=== PATIENT | female | born 1960 | race Caucasian/White ===

== ENCOUNTER 2017-05-22 05:27 | Observation (INO) | payer OTHER ==
[2017-05-15 10:20] VITALS: BMI 33.0
--- NOTE | 2017-05-15 10:59 | PAT Medication Instructions ---
Service Date May 15, 2017. Current Home Medication List Levothyroxine Sodium (Levothyroxine Sodium), 1 TAB PO QAM Omeprazole (Prilosec), 20 MG PO PRN Sertraline (Zoloft), 100 MG PO QAM [Hydrochlorothiazide], 1 TAB PO QAM [Meloxicam], 1 TAB PO QAM Medication Instructions For Your Scheduled Surgery - Hold the following medications the morning of surgery: [Hydrochlorothiazide], 1 TAB PO QAM [Meloxicam], 1 TAB PO QAM (otherwise okay to continue per surgeon) - Take the following medications the morning of surgery with a sip of water OTHERWISE NOTHING TO EAT OR DRINK AFTER MIDNIGHT: Levothyroxine Sodium (Levothyroxine Sodium), 1 TAB PO QAM Omeprazole (Prilosec), 20 MG PO PRN Sertraline (Zoloft), 100 MG PO QAM If you have any questions please call us at [phone] or [phone] or [phone]
--- NOTE | 2017-05-15 11:43 | DIAGNOSTIC IMAGING REPORT ---
CHEST PREADMISSION(PA/LAT) CLINICAL HISTORY: PAT preoperative evaluation COMPARISON STUDY: No previous studies for comparison. FINDINGS: The bones soft tissues and hemidiaphragms are normal. The cardiomediastinal silhouette is normal. The lungs are clear. The pulmonary vasculature is normal. IMPRESSION: Negative chest. The above report was generated using voice recognition software. It may contain grammatical, syntax or spelling errors. Electronically signed by: Gordo Escalante M.D. 05/15/2017 11:42 AM Dictated Date/Time: 05/15/2017 11:42 AM
[2017-05-15 11:56] LABS: URINE APPEARANCE TURBID (CLEAR); URINE BILIRUBIN NEG (NEG); URINE COLOR YELLOW; URINE EPITHELIAL CELL AUTO >30 /lpf (0-5); URINE NITRITE NEG (NEG); URINE PH 5.5 (4.5-7.5); URINE SPECIFIC GRAVITY 1.027 (1.000-1.030); UROBILINOGEN NEG (NEG)
[2017-05-15 11:57] LABS: BASO ABS # 0.05 K/uL (0-0.2); COMPLETE YES; EOS % 3.1 %; IG% 0.2 %; LYMPH % 33.9 %; LYMPH ABS # 1.63 K/uL (1.2-3.4); MEAN CELL VOLUME 90.9 fL (80-100); MEAN CORPUSCULAR HEMOGLOBIN 28.5 pg (25-34); MEAN CORPUSCULAR HGB CONC 31.4 g/dl (32-36); MEAN PLATELET VOLUME 12.4 fL (7.4-10.4); MONO % 12.3 %; NEUT % 49.5 %; PLATELET COUNT 161 K/uL (130-400); RED BLOOD COUNT 4.73 M/uL (4.2-5.4); WHITE BLOOD COUNT 4.81 K/uL (4.8-10.8)
[2017-05-15 12:01] LABS: MANUAL MICROSCOPIC REQUIRED? NO; REVIEW REQ? YES
[2017-05-15 12:07] LABS: PROTHROMBIN TIME (PATIENT) 10.6 SECONDS (9.0-12.0)
[2017-05-22] VITALS (16 sets, daily range): BP systolic 112–171; BP diastolic 72–101; PULSE 52–74; TEMP 36.2–36.9; O2SAT 95–99; Ht 165.1 cm; Wt 92.4 kg
[~2017-05-22] VITALS: Ht 165.1 cm; Wt 92.4 kg
[~2017-05-22 05:27] MED LIST: HYDROCHLOROTHIAZIDE PO; LEVO150T9 PO; MELOXICAM PO; PRLSR20 PO; SERT-234 PO
[2017-05-22] MEDS ORDERED: NSS 1000ML IV SCH (06:00)
[2017-05-22] MEDS ORDERED: CEFAZOLIN 2000 MG/60 ML D5W IV SCH (06:00)
[2017-05-22] MEDS ORDERED: LACTATED RINGER'S 1000ML 1,000 ML IV SCH (06:00)
[2017-05-22] MEDS ORDERED: THROMBIN FOR SOLN 20000 UNIT KIT ONE (06:50)
[2017-05-22] MEDS ORDERED: BACITRACIN 50000 UNIT VIAL ONE (06:50)
[2017-05-22] MEDS ORDERED: GELATIN SPONGE SZ 100 ONE ×2 (06:50→07:10)
[2017-05-22] MEDS ORDERED: BUPIVACAINE/EPINEPHRINE 0.5% MPF 1:200,000 10 ML VIAL ONE ×3 (06:50→07:02)
[2017-05-22] MEDS ORDERED: DEXAMETHASONE SOD INJ 4 MG/ML VIAL ONE (06:54)
[2017-05-22] MEDS ORDERED: EpHEDrine SULFATE INJ 50 MG/ML AMP ONE (06:54)
[2017-05-22] MEDS ORDERED: ONDANSETRON INJ 2 MG/ML 2 ML VIAL ONE (06:54)
[2017-05-22] MEDS ORDERED: ROCURONIUM BROMIDE 10 MG/ML 5 ML VIAL ONE (06:54)
[2017-05-22] MEDS ORDERED: MIDAZOLAM HCL 1 MG/ML 2ML VIAL ONE (06:54)
[2017-05-22] MEDS ORDERED: PROPOFOL IV EMULSION 10 MG/ML 20 ML VIAL IV ONE (06:54)
[2017-05-22] MEDS ORDERED: PHENYLEPHRINE HCL INJ 10 MG/ML VIAL ONE (06:54)
[2017-05-22] MEDS ORDERED: FENTANYL CITRATE INJ 50 MCG/1 ML 2 ML VIAL ONE (06:54)
[2017-05-22] MEDS ORDERED: LIDOCAINE HCL 2% 2 ML VIAL (20MG/ML) ONE (06:54)
[2017-05-22] MEDS ORDERED: NEOSTIGMINE METHYLSULFATE 5 MG/5 ML SYR ONE (06:54)
[2017-05-22] MEDS ORDERED: SUCCINYLCHOLINE CHLORIDE 20 MG/ML 10 ML VIAL IV ONE (06:54)
[2017-05-22] MEDS ORDERED: GLYCOPYRROLATE INJ 0.2 MG/ML VIAL ONE (06:54)
--- NOTE | 2017-05-22 07:12 | History and Physical ---
History & Physical Date May 22, 2017. Chief Complaint Neck and arm pain and trapezius pain and weakness History of Present Illness The patient is a 56 year old female with complaints of neck pain and arm pain and trapezius pain numbness and tingling to the extremities Past Medical/Surgical History Hypothyroid edema pressure and arthritis no hypertension no COPD no diabetes mellitus no carcinoma Surgical history multiple tunnel and hysterectomy Additional History Hepatic Disease: No Endocrine Disorder: Yes Kidney Disease: No Hypertension: No Heart Disease: No Bleeding Tendencies: No Infectious Diseases: No Allergies Coded Allergies: No Known Allergies (Unverified , 05/22/17) Home Medications Scheduled Levothyroxine Sodium (Levothyroxine Sodium), 1 TAB PO QAM Omeprazole (Prilosec), 20 MG PO PRN Sertraline (Zoloft), 100 MG PO QAM [Hydrochlorothiazide], 1 TAB PO QAM [Meloxicam], 1 TAB PO QAM Physical Examination Skin: warm/dry, no rash Eyes: normal inspection ENT: normal ENT inspection Head: normocephalic Neck: supple Respiratory/Chest: lungs clear Cardiovascular: regular rate, rhythm Abdomen / GI: normal bowel sounds Back: normal inspection Extremities: normal inspection Genitourinary - Female: external genitalia normal Diagnosis Spinal cord compression C5-C6 cervical spine ASA Classification: ASA Class III Plan of Treatment Anterior cervical discectomy and fusion C5 6 cervical spine. Iliac crest bone graft. Thank you
[2017-05-22] MEDS ORDERED: EpHEDrine SULFATE INJ 50 MG/ML AMP IV PRN (07:15)
[2017-05-22] MEDS ORDERED: ATROPINE SULFATE 0.1 MG/ML 5ML SYR IV PRN (07:15)
[2017-05-22] MEDS ORDERED: PHENYLEPHRINE 100MCG/ML 5ML SYR IV PRN (07:15)
[2017-05-22] MEDS ORDERED: ONDANSETRON INJ 2 MG/ML 2 ML VIAL IV PRN ×2 (07:15→09:30)
[2017-05-22] MEDS ORDERED: LORAZEPAM INJ 0.5 MG in SYRINGE 0.75 ML IV PRN (09:30)
[2017-05-22] MEDS ORDERED: HYDROmorphone INJ 0.5 MG/0.5 ML SYR IV PRN (09:30)
[2017-05-22] MEDS ORDERED: RACEPINEPHRINE 2.25% NEBU SOLN 0.5 ML VIAL INH PRN (09:30)
[2017-05-22] MEDS ORDERED: PANTOprazole SOD 40 MG TAB PO PRN (09:30)
[2017-05-22] MEDS ORDERED: ACETAMINOPHEN IV 1,000 MG in EMPTY BAG 0 ML IV PRN (09:30)
[2017-05-22] MEDS ORDERED: NALOXONE HCL 0.4 MG/1 ML VIAL/CARP IV PRN (09:30)
[2017-05-22] MEDS ORDERED: DEXAMETHASONE INJ 8 MG in SYRINGE 0 ML IV PRN (09:30)
[2017-05-22] MEDS ORDERED: MAGNESIUM HYDROXIDE SUSP 30 ML UDC PO PRN (09:30)
--- NOTE | 2017-05-22 09:30 | [facility] Operative Report ---
Operative Report Operative Date May 22, 2017. Pre-Operative Diagnosis Spinal cord compression C5-C6 Certvical spine Post-Operative Diagnosis Spinal cord compression C5-C6 Certvical spine Procedure(s) Performed C5-C6 Anterior Cervical Discectomy and Fusion with Iliac Crest Bone Graft Surgeon Dr. Werner Magnetic Prospecting Operator Surgeon(s) Kenton Escalona PA-C Estimated Blood Loss 20CC Findings Spinal cord compression C5 6 cervical spine Specimens None per surgeon Complication(s) None Disposition Recovery Room / PACU Indications Spinal cord compression Description of Procedure Description of procedure Taken to the operating room a general intubated anesthetic provided the patient Supine on the operative table. I pounds of traction placed patient was scrubbed first with Betadine prep with ChloraPrep both cervical spine and left iliac crest. Draped off sterile. Made a transverse skin incision are 56 interval the cervical spine dissecting the soft tissue came down on the vertebral bodies anterior approach. Formal discectomy at C5 C5-6 of the cervical spine. All disc material was removed. Laterally to the uncovertebral joints post posteriorly as deep as the posterior longitudinal ligament and through the ligament itself. Allograft and went to the iliac crest harvested a bone graft approximately 7 mm in height 14 mm in depth and approximate 14 mm left to right. This was placed in the discectomy site at C5 6 anterior plate of 14 mm with 14 mm screws by the [place] placed over the anterior construct stable images demonstrated excellent positioning of the plate screw fixation. We irrigated began our closure 1 Vicryl 20 and 3-0 nylon on the iliac crest for all not Monocryl over a [place] drain cervical spine sterile dressings applied. Cervical collar applied patient extubated and returned to PACU improved stable condition. Implants used by the CAPPTURE. Bungee needle count correct at the close of the procedure May blood loss cc. Magnetic Prospecting Operator Kenton Escalona PAC I attest to the content of the Intraoperative Record and any orders documented therein. Any exceptions are noted below.
[2017-05-22] MEDS: HYDROmorphone INJ 2 MG/ML SYR/VIAL IV PRN ×4 (09:35→09:50)
[2017-05-22] MEDS ORDERED: IV FLUIDS COMPLETED PRN (09:45)
--- NOTE | 2017-05-22 10:05 | DIAGNOSTIC IMAGING REPORT ---
INTRAOPERATIVE CERVICAL SPINE 2 VIEWS CLINICAL HISTORY: ACDF C5-6 COMPARISON STUDY: Outside radiograph dated 02/06/2017 FINDINGS: 2 intraoperative fluoroscopic spot images are provided for interpretation. 6 seconds of fluoroscopic time was utilized. These 2 images demonstrate postsurgical changes of an anterior cervical discectomy and fusion at the C5-6 level. IMPRESSION: Intraoperative fluoroscopic spot images demonstrating postsurgical changes of an anterior cervical discectomy and fusion at the C5-6 level. Electronically signed by: Noe Davis M.D. 05/22/2017 10:04 AM Dictated Date/Time: 05/22/2017 10:02 AM
--- NOTE | 2017-05-22 10:48 | Anesthesiology Progress Note ---
Anesthesia Post Op Note Date & Time May 22, 2017 at 10:48 Vital Signs Pain Intensity: 3 Vital Signs Past 12 Hours Date Time Temp Pulse Resp B/P (MAP) Pulse Ox O2 Delivery O2 Flow Rate FiO2 05/22/17 10:25 59 17 118/73 97 Nasal Cannula 4 05/22/17 10:15 59 15 118/75 96 Nasal Cannula 4 05/22/17 10:05 36.1 56 16 115/82 98 Nasal Cannula 4 05/22/17 09:55 56 16 122/81 97 Nasal Cannula 4 05/22/17 09:45 62 16 125/81 96 Nasal Cannula 4 05/22/17 09:35 58 16 131/80 96 Nasal Cannula 4 05/22/17 09:25 36.1 80 16 124/86 96 Nasal Cannula 4 05/22/17 05:56 36.8 62 18 171/101 (124) 99 Room Air Notes Mental Status: alert / awake / arousable, participated in evaluation Pt Amnestic to Procedure: Yes Nausea / Vomiting: adequately controlled Pain: adequately controlled Airway Patency, RR, SpO2: stable & adequate BP & HR: stable & adequate Hydration State: stable & adequate Anesthetic Complications: no major complications apparent
[2017-05-22] MEDS ORDERED: HYDROmorphone INJ 1 MG/ML SYR IV PRN (12:00)
[2017-05-22] MEDS: SODIUM CHLORIDE 0.9% 1000ML 1,000 ML IV SCH ×2 (12:40→22:13)
[2017-05-22] MEDS: DEXAMETHASONE INJ 6 MG in SYRINGE 0 ML IV SCH ×2 (13:18→22:07)
[2017-05-22] MEDS: CEFAZOLIN IV 1,000 MG in DEXTROSE 5% 50ML 50 ML IV SCH ×2 (15:49→23:59)
[2017-05-22] MEDS: OXYCODONE/ACETAMINOPHEN 5-325 TAB PO PRN (17:57)
[2017-05-22] MEDS: DOCUSATE SODIUM 100 MG CAP PO SCH (22:06)
[2017-05-23] VITALS (12 sets, daily range): BP systolic 137–156; BP diastolic 85–93; PULSE 58–68; TEMP 36.6–36.8; O2SAT 91–98
[2017-05-23] MEDS: DEXAMETHASONE INJ 6 MG in SYRINGE 0 ML IV SCH (05:49)
[2017-05-23] MEDS ORDERED: LEVOTHYROXINE 150 MCG TAB PO SCH (06:00)
[2017-05-23] MEDS: OXYCODONE/ACETAMINOPHEN 5-325 TAB PO PRN (06:04)
--- NOTE | 2017-05-23 07:17 | Discharge Instructions ---
Discharge Instructions Date of Service May 23, 2017. Admission Reason for Admission: Cervical Disc Herniation C5-C6 Discharge Discharge Diagnosis / Problem: same Discharge Goals Goal(s): Improve function Activity Recommendations Activity Limitations: as noted below Lifting Limitations: gradually increase as tolerated Exercise/Sports Limitations: until after follow-up appointment May Resume Sexual Activity: after follow-up appointment Shower/Bathe: keep incision dry . Instructions / Follow-Up Instructions / Follow-Up MEDICATIONS: Please take your prescriptions as instructed at your pre-op appointment. SPECIAL CARE: The following information is intended to answer some of the common questions and concerns regarding your surgery. Each patient is an individual and receives individual counselling throughout the course of treatment, from diagnosis to surgery all the way through recovery. What follows is not an exhaustive list, but should be a useful guide to some of the common questions and concerns patients have regarding their surgeries. These are not provided to keep you from calling us; rather, they give you something accurate and concrete to reference as you recover from your procedure. If you need us, we are available to you. As always, if you are not sure about something, call us at [phone]. MEDICAL EMERGENCIES: For these conditions, call 911 or go to your local hospital-based Emergency Department - not [facility] or equivalent. * Paralysis * Severe chest pain or difficulty breathing * Swelling or redness of either leg Spine procedures can be rather complex and though complications are rare, they do occur. In such cases, effective advice regarding emergency situations cannot always be addressed over the telephone. You may be referred to the emergency department for more effective management of your problem. Activity Limitations: It is important to give your body time to heal, so please limit your activities : * In general, don't do anything that moves your spine too much. You should avoid contact sports, twisting or heavy lifting while you recover. * 5-10 pounds is all you should attempt to lift. * You should not plan on driving for approximately 3 weeks and you should avoid traveling more than 30-45 minutes at a time. Longer trips should be broken down with walking breaks spaced appropriately. * Physical therapy is not usually required. * Walking and good posture practices will help you recover and regain your function. * Avoid straining or sudden changes in position. * In general, the goal is to take it easy and recover. Don't cause any new problems. Just relax. Showers: * Do not take a bath, use a Jacuzzi or hot tub or otherwise submerge your incision. * It is usually safe to take a shower 4-5 days after your surgery. * Your incision does not require any special creams or ointments. * Simply clean it with soap and water, dry and re-dress with a clean bandage afterwards. Incision: * Keep incision clean, dry and protected until your first follow-up appointment. * Some amount of drainage and redness is normal. Any drainage should be fairly clear and not have a foul odor. * If you feel anything is wrong or you have excessive drainage, please call us. * Your stitches and carina will be removed 10-14 days after your surgery. At the time of your first post-op visit. * Neck surgeries are typically closed with a suture underneath the skin. The steri-strips over the incision should be maintained until we see you in the office. Bracing: * You may be provided with a back or neck brace to encourage good posture and prevent injury. It will remind you not to do too much as you heal and will alert others to the fact that you have had a surgery. * Back braces may be removed for showers and when you are resting at home. They must be worn when you are walking around for any period of time or for travel. * For neck surgery, you will likely be provided with two cervical collars. The soft collar ([place] or foam rubber) is worn most commonly throughout the day and while sleeping. The plastic collar (provided at the hospital) is for showering/bathing. * Except while eating, collars should remain in place. More specifically, bracing is provided for a purpose and should be worn. * Please obtain your brace or collars prior to your operation and bring them to the hospital with you on the day of surgery. * You should also bring your collars to your post-op appointment with Dr. Werner. You should always take good care of your body and practice healthy habits, especially following surgery. You should: * Follow your doctor's treatment plan * Sit and stand properly with good posture (ears over shoulders, shoulders over hips) Don't slouch * Learn to lift correctly * Exercise regularly (low-impact aerobic exercise is especially good, but check with your doctor first) * Generally, be up and walking for 5-10 minutes at a time at least 3-4 times per day from the day you get home * Increasing walking to tolerance until you can walk for 20-30 minutes at a time * Attain and maintain a healthy body weight * Eat healthy foods ( a well-balanced, low-fat diet rich in fruits and vegetables) and get enough calcium * Avoid excessive use of alcohol When to call our office - If you notice any of the following: * Increased pain not relieve by pain medicine * Fevers greater then 100 degrees F, chills or flu symptoms * Increased redness around incision * Drainage from the incision that is not clear * Any foul smelling drainage * Swelling or fluid collection beneath the skin Miscellaneous: * In the hospital, you may be given a walker or cane for support while walking. These are temporary needs and are intended to prevent injuries due to falls. You may discontinue them when you feel strong and steady enough on your feet. * Sleep in a comfortable position. We find that many patients find a lounge chair or recliner with several pillows to be beneficial in the early post-operative period. * The support stockings should be used for 7-10 days and may be discontinued when you are back to walking more and conducting usual household activities. No problem is insignificant. We are here to help you and get you well. Contact us at [phone]. Definitions: Foraminotomy: If part of the disc or a bone spur (osteophyte) is pressing on a nerve as it leaves the vertebra (through an exit called the foramen), a foraminotomy may be done. Otomy means "to make an opening." A foraminotomy is making the opening of the foramen larger, so the nerve can exit without being compressed. Laminotomy: Similar to the foraminotomy, a laminotomy makes a larger opening, this time in your bony plate protecting your spinal canal and spinal cord (the lamina). The lamina may be pressing on your nerve, so the surgeon may make more room for the nerves using a laminotomy. Laminectomy: Sometimes, a laminotomy is not sufficient. The surgeon may need to remove all or part of the lamina. This procedure is called a laminectomy. This can often be done at many levels without any harmful effects. Current Hospital Diet Patient's current hospital diet: Clear Liquid Diet; advance aS TOLERATED Discharge Diet Recommended Diet: Regular Diet Procedures Procedures Performed: C5-C6 Anterior Cervical Discectomy and Fusion with Iliac Crest Bone Graft Pending Studies Studies pending at discharge: no Medical Emergencies . Who to Call and When: Medical Emergencies: If at any time you feel your situation is an emergency, please call 911 immediately. . Non-Emergent Contact Non-Emergency issues call your: Primary Care Provider Call Non-Emergent contact if: you have any medication questions . "Provider Documentation" section prepared by Terry Werner. . VTE Core Measure Inpt VTE Proph given/why not?: Treatment not indicated
--- NOTE | 2017-05-23 07:19 | Discharge Summary ---
Orthopedic Discharge Summary Admission Date/Reason May 22, 2017 at 09:24 Cervical Disc Herniation C5-C6. Discharge Date/Disposition May 23, 2017 Home Diagnosis Principal Diagnosis: Spinal cord compression Procedure(s) Performed Anterior cervical discectomy and fusion C5 6 cervical. Left iliac crest bone graft Medication Reconciliation Hydrocodone for pain Admission Physical Exam As per Admitting History & Physical. Hospital Course Patient was noted to my service after surgery one level anterior cervical discectomy and fusion. Iliac crest bone graft. He is up ambulatory day one taking by mouth stable. She was alert oriented no chest pain shortness of breath confusion. discharged home on May 23 improved stable condition instructions. Given precautions given at the office and here at the hospital Discharge Instructions Please refer to the electronic Patient Visit Report (Discharge Instructions) for additional information.
[2017-05-23] MEDS: CEFAZOLIN IV 1,000 MG in DEXTROSE 5% 50ML 50 ML IV SCH (07:36)
[2017-05-23] MEDS: DOCUSATE SODIUM 100 MG CAP PO SCH (08:19)
--- NOTE | 2017-05-23 08:35 | Anesthesiology Progress Note ---
Anesthesia Post Op Note Date & Time May 23, 2017 at 08:35 Vital Signs Pain Intensity: 0.0 Vital Signs Past 12 Hours Date Time Temp Pulse Resp B/P (MAP) Pulse Ox O2 Delivery O2 Flow Rate FiO2 05/23/17 08:27 91 Room Air 05/23/17 07:49 36.7 60 16 143/92 93 Room Air 05/23/17 07:45 Room Air 05/23/17 07:45 36.7 60 16 142/92 (109) 91 Room Air 05/23/17 07:25 60 16 93 Room Air 05/23/17 05:45 36.7 63 16 141/90 96 Nasal Cannula 2.0 Humidified Oxygen 05/23/17 03:59 68 18 98 Nasal Cannula 2.0 05/23/17 03:45 36.8 62 18 137/85 96 Nasal Cannula 2.0 Humidified Oxygen 05/23/17 01:45 36.6 58 16 142/91 95 Nasal Cannula 2.0 Humidified Oxygen 05/22/17 23:50 Nasal Cannula 2.0 Humidified Oxygen 05/22/17 23:45 36.8 63 18 131/85 95 Nasal Cannula 2.0 Humidified Oxygen 05/22/17 23:19 74 16 98 Nasal Cannula 2.0 05/22/17 21:53 36.2 61 16 129/82 95 Nasal Cannula 4.0 Humidified Oxygen Notes Mental Status: alert / awake / arousable, participated in evaluation Pt Amnestic to Procedure: Yes Nausea / Vomiting: adequately controlled Pain: adequately controlled Airway Patency, RR, SpO2: stable & adequate BP & HR: stable & adequate Hydration State: stable & adequate Anesthetic Complications: no major complications apparent
[2017-05-23] MEDS ORDERED: SERTRALINE HCL 100 MG TAB PO SCH (09:00)
[2017-05-24] MEDS ORDERED: BISACODYL 5 MG TABEC PO PRN (06:00)
[2017-05-24] MEDS ORDERED: BISACODYL 10 MG SUPP PR PRN (06:00)
== END 2017-05-23 10:44 | disposition home or self-care (01) ==
LOC: C.ACU 05:27 → C.3E 09:24 → ENRESERV 10:15
PROVIDERS: ADMIT Orthopaedic Surgery Orthopaedic Surgery of the Spine; ATTEND Orthopaedic Surgery Orthopaedic Surgery of the Spine
DX: G95.20 Unspecified cord compression (principal); M54.12 Radiculopathy, cervical region; G89.29 Other chronic pain; E03.9 Hypothyroidism, unspecified; M19.90 Unspecified osteoarthritis, unspecified site; Z90.710 Acquired absence of both cervix and uterus; F32.9 Major depressive disorder, single episode, unspecified; K21.9 Gastro-esophageal reflux disease without esophagitis; I10 Essential (primary) hypertension; Z87.442 Personal history of urinary calculi; E66.9 Obesity, unspecified; F41.9 Anxiety disorder, unspecified